=== PATIENT | female | born 1995 | race Caucasian/White ===

== ENCOUNTER 2018-07-10 08:28 | Inpatient (IN) | payer BC ==
--- NOTE | 2018-07-10 09:55 | PDOC ---
History of Present Illness - General Chief Complaint: Pain, Acute Stated Complaint: BACK PAIN Time Seen by Provider: 07/10/18 09:30 - History of Present Illness Initial Comments: 07/10/18 09:48 22yo F with no sig PMH or PSH presents to the ED with sudden onset R sided flank pain radiating to the RLQ since 7am this morning. Pt states pain is sharp , comes in waves, and is associated with nausea and vomiting. Pt reports 3 episodes of NBNB emesis when pain was at its worst. Pt also reports feeling like she needs to void when pain comes on but is only able to void a bit. Reports urine is darker than usual. Pt was in her USOGH prior to onset of pain. No recent fevers, chills, CP, SOB, headache, weakness, numbness, LE edema, rashes. LMP was 3-4 weeks ago. Pt reports she has never had sexual intercourse in the past. Denies vaginal DC. Denies hx kidney stones, but mom states there is a family history. Past History - Past Medical History Allergies/Adverse Reactions: Allergies Allergy/AdvReac Type Severity Reaction Status Date / Time ibuprofen [From Motrin] Allergy Verified 07/10/18 08:42 COPD: No Other medical history: family hx of kidney stones/gall stones - Suicide/Smoking/Psychosocial Hx Smoking History: Never smoked Review of Systems - Review of Systems Comments:: 07/10/18 09:57 GENERAL/CONSTITUTIONAL: No fever or chills. No weakness. HEAD, EYES, EARS, NOSE AND THROAT: No change in vision. No ear pain or discharge. No sore throat. GASTROINTESTINAL: +nausea, vomiting, abd pain, no diarrhea or constipation. GENITOURINARY: +flannk pain and urgency. No dysuria, frequency CARDIOVASCULAR: No chest pain or shortness of breath. RESPIRATORY: No cough, wheezing, or hemoptysis. MUSCULOSKELETAL: No joint or muscle swelling or pain. No neck or back pain. SKIN: No rash NEUROLOGIC: No headache, vertigo, loss of consciousness, or change in strength/ sensation. ENDOCRINE: No increased thirst. No abnormal weight change. HEMATOLOGIC/LYMPHATIC: No anemia, easy bleeding, or history of blood clots. ALLERGIC/IMMUNOLOGIC: No hives or skin allergy. *Physical Exam - Vital Signs Last Vital Signs Temp Pulse Resp BP Pulse Ox 98.1 F 61 18 114/61 99 07/10/18 08:35 07/10/18 08:35 07/10/18 08:35 07/10/18 08:35 07/10/18 08:35 - Physical Exam Comments: 07/10/18 09:58 GENERAL: Awake, alert, and fully oriented, appears uncomfortable EYES: PERRLA, EOMI, sclera anicteric, conjunctiva clear ENT: Nares patent, oropharynx clear without exudates. Moist mucosa LUNGS: Breath sounds equal, clear to auscultation bilaterally. No wheezes, and no crackles HEART: Regular rate and rhythm, normal S1 and S2, no murmurs, rubs or gallops ABDOMEN: Soft, nontender, normoactive bowel sounds. No guarding, no rebound. No masses : +R CVAT, pelvic exam deferred EXTREMITIES: Normal range of motion, no edema. No cords, erythema, or tenderness NEUROLOGICAL: Normal speech, cranial nerves intact, equal strength and sensation b/l SKIN: Warm, Dry, normal turgor, no rashes or lesions noted. Moderate Sedation - Procedure Monitoring Vital Signs: Procedure Monitoring Vital Signs Temperature 98.1 F 07/10/18 08:35 Pulse Rate 61 07/10/18 08:35 Respiratory Rate 18 07/10/18 08:35 Blood Pressure 114/61 07/10/18 08:35 O2 Sat by Pulse Oximetry (%) 99 07/10/18 08:35 ED Treatment Course - LABORATORY CBC & Chemistry Diagram: 07/10/18 09:59 07/10/18 09:59 Medical Decision Making - Medical Decision Making 07/10/18 09:59 22yo F presents to the ED with sudden onset R sided flank pain radiating to RLQ , dark urine, urgency, N/V concerning for R renal colic. Pt is non toxic appearing but uncomfortable. Plan to check labs, UA, UPT, control pain, consider imaging. DDx also includes ovarian torsion vs ovarian cyst vs appendicitis. 07/10/18 13:46 UA with +blood and many WBCs CTAP with gallstones c/f acute ricky, 2.5mm R sided UVJ kidney stone, and R sided ovarian cyst All 3 could be etiology of pt's pain On rpt eval, pt has RUQ ttp RUQ US ordered to evaluate GB Transabdominal US ordered for possible ovarian cyst. Pt currently getting 2nd L IVF to fill bladder. Pt is virgin and declines pelvic exam and transvaginal US Given prolonged w/u, pt put on ED obs. Case discussed with Dr. Boyce, pt accepted to ED obs under Dr. Chapman 07/10/18 17:10 Pelvic US reveals small R sided ovarian cyst with no evidence of torsion RUQ US reveals acute cholecystitis Pt given ZOsyn to cover for cholecystitis as well as possible UTI Case discussed with Dr. Joshi's nurse Poly, Dr. Joshi will see pt Pt is NPO, has been since 7pm last night IVF @maintanence ordered Pt updated about findings, pain well controlled at this time, she declines pain meds Updated Dr. Boyce, care transitioned to admitting hospitalist team Case discussed in detail with admitting physician including history, physical exam and ancillary studies. Admitting physician has assumed care for the patient, will follow all pending diagnostics and will complete the evaluation and treatment. *DC/Admit/Observation/Transfer Diagnosis at time of Disposition: Acute cholecystitis, Ovarian cyst, Kidney stone - Discharge Dispostion Condition at time of disposition: Stable Decision to Admit order: Yes - Referrals - Patient Instructions - Post Discharge Activity - Attestations Physician Attestion: 07/10/18 17:23 I, Dr. Linda Alonso MD, attest that this document has been prepared under my direction and personally reviewed by me in its entirety. I further attest, that it accurately reflects all work, treatment, procedures and medical decision -making performed by me.
[2018-07-10] MEDS ORDERED: ONDANSETRON 4 MG/2 ML VIAL IVPUSH ONE (10:01)
[2018-07-10] MEDS ORDERED: ACETAMINOPHEN 1000 MG/100 ML VIAL (NON FORMULARY) IVPB ONE (10:01)
[2018-07-10 10:20] LABS: BASO % 0.3 % (0-2.0); EOS % 0.4 % (0-4.5); HEMOGLOBIN 11.6 GM/dL (10.7-15.3); LYMPH % 9.1 % (8-40); MCH 30.6 pg (25.7-33.7); MCHC 34.3 g/dl (32.0-36.0); MEAN CELL VOLUME 89.2 fl (80-96); MEAN PLT VOLUME 10.2 fl (7.5-11.1); MONO % 3.2 % (3.8-10.2); PLATELET COUNT 294 K/MM3 (134-434); RBC 3.81 M/mm3 (3.60-5.2); RDW 13.3 % (11.6-15.6); WHITE BLOOD COUNT 12.3 K/mm3 (4.0-10.0)
[2018-07-10] MEDS ORDERED: ACETAMINOPHEN INJECTION 100 ML IVPB ONE (10:25)
[2018-07-10] MEDS ORDERED: ONDANSETRON 4 MG/2 ML VIAL ONE (10:25)
[2018-07-10 10:35] LABS: ALBUMIN 3.8 g/dl (3.4-5.0); ALK PHOS 94 U/L (45-117); ANION GAP 8 MMOL/L (8-16); BILIRUBIN,TOTAL 0.3 mg/dL (0.2-1); BLOOD UREA NITROGEN 11 mg/dL (7-18); CALCIUM 8.8 mg/dL (8.5-10.1); CHLORIDE 106 mmol/L (98-107); CO2 25 mmol/L (21-32); CREATININE 0.8 mg/dL (0.55-1.3); GLUCOSE,RANDOM 124 mg/dL (74-106); LIPASE 150 U/L (73-393); MAGNESIUM 1.8 mg/dL (1.8-2.4); POTASSIUM 4.1 mmol/L (3.5-5.1); SGOT/AST 9 U/L (15-37); SGPT/ALT 19 U/L (13-61); SODIUM 140 mmol/L (136-145); TOT PROT 7.6 g/dl (6.4-8.2)
[2018-07-10 10:38] LABS: HCG,QUALITATIVE URINE Negative
[2018-07-10 11:29] LABS: PH,URINE 5.5 (5.0-8.0); URINE APPEARANCE Clear; URINE BILIRUBIN 1+ (<2.0 mg/dL); URINE COLOR Yellow; URINE GLUCOSE (UA) Negative (NEGATIVE); URINE KETONE Trace (NEGATIVE); URINE LEUK ESTERASE Negative (NEGATIVE); URINE NITRITE Negative (NEGATIVE); URINE PROTEIN 1+ (NEGATIVE); URINE UROBILINOGEN 0.2 mg/dL (0.2-1.0)
[2018-07-10 11:42] LABS: CALCIUM OXALATE CRYSTALS FEW /hpf (NONE SEEN); EPI CELLS FEW /HPF (FEW)
[2018-07-10] MEDS ORDERED: PIPERACILLIN/TAZOB 3.375 GM 3.375 GM in DEXTROSE 5%-WATER - 50 ML IVPB ONE (16:05)
[2018-07-10] MEDS ORDERED: PIPERACILLIN/TAZOB 3.375 GM 3.375 GM/50 ML BAG IVPB ONE (16:38)
[2018-07-10] MEDS ORDERED: MORPHINE SULFATE 2 MG/ML VIAL IVPUSH PRN (17:05)
[2018-07-10] MEDS ORDERED: ONDANSETRON 4 MG/2 ML VIAL IVPUSH PRN (17:09)
--- NOTE | 2018-07-10 17:11 | HP ---
CHIEF COMPLAINT:abdominal pain. PCP: HISTORY OF PRESENT ILLNESS: 22 yo F with no PMHx presents with one day history of worsening abdominal pain. She describes 10/10 sharp pain originating in right flank and radiating to suprapubic area. Aggravated by movement and no alleviating factors. Denies dysuria or hematuria. Denies CP,FLORES, SOB, ER course was notable for: (1)CT abdomen and pelvis shows small 2.5mm non obstructing stone. (2)RUQ shows acute cholecystitis. (3) Recent Travel: denies PAST MEDICAL HISTORY: PAST SURGICAL HISTORY: Social History: Smoking:denies Alcohol:socially Drugs: occasional marijuana Family History: Allergies ibuprofen [From Motrin] Allergy (Verified 07/10/18 08:42) HOME MEDICATIONS: REVIEW OF SYSTEMS CONSTITUTIONAL: Absent: fever, chills, diaphoresis, generalized weakness, malaise, loss of appetite, weight change HEENT: Absent: rhinorrhea, nasal congestion, throat pain, throat swelling, difficulty swallowing, mouth swelling, ear pain, eye pain, visual changes CARDIOVASCULAR: Absent: chest pain, syncope, palpitations, irregular heart rate, lightheadedness , peripheral edema RESPIRATORY: Absent: cough, shortness of breath, dyspnea with exertion, orthopnea, wheezing, stridor, hemoptysis GASTROINTESTINAL:abdominal pain Absent: , abdominal distension, nausea, vomiting, diarrhea, constipation, melena , hematochezia GENITOURINARY: Absent: dysuria, frequency, urgency, hesitancy, hematuria, flank pain, genital pain MUSCULOSKELETAL: Absent: myalgia, arthralgia, joint swelling, back pain, neck pain SKIN: Absent: rash, itching, pallor HEMATOLOGIC/IMMUNOLOGIC: Absent: easy bleeding, easy bruising, lymphadenopathy, frequent infections ENDOCRINE: Absent: unexplained weight gain, unexplained weight loss, heat intolerance, cold intolerance NEUROLOGIC: Absent: headache, focal weakness or paresthesias, dizziness, unsteady gait, seizure, mental status changes, bladder or bowel incontinence PSYCHIATRIC: Absent: anxiety, depression, suicidal or homicidal ideation, hallucinations. PHYSICAL EXAMINATION Vital Signs - 24 hr 07/10/18 08:35 Temperature 98.1 F Pulse Rate 61 Respiratory 18 Rate Blood Pressure 114/61 O2 Sat by Pulse 99 Oximetry (%) GENERAL: AAOx3, NAD HEAD: NCAT EYES: PERRLA, EOMI, extraocular movements intact, sclera anicteric, conjunctiva clear. No lid lag. EARS, NOSE, THROAT: Moist mucous membranes. NECK: supple without lymphadenopathy, JVD, or masses. LUNGS: CTAB No wheezes, and no crackles. No accessory muscle use. HEART: Regular rate and rhythm, normal S1 and S2 without murmur, rub or gallop. ABDOMEN: Soft, RUQ tenderness, not distended, normoactive bowel sounds, no guarding, no rebound, no masses. No hepatomegaly or splenomegaly. MUSCULOSKELETAL: Normal range of motion at all joints. No bony deformities or tenderness. No CVA tenderness. LOWER EXTREMITIES: 2+ pulses, warm, well-perfused. No calf tenderness. No peripheral edema. NEUROLOGICAL: Cranial nerves II-XII intact. Normal speech. Normal gait. PSYCHIATRIC: Cooperative. Good eye contact. Appropriate mood and affect. SKIN: Warm, dry, normal turgor, no rashes or lesions noted, normal capillary refill. Laboratory Results - last 24 hr 07/10/18 07/10/18 07/10/18 08:57 09:59 09:59 WBC 12.3 H RBC 3.81 Hgb 11.6 Hct 34.0 MCV 89.2 MCH 30.6 MCHC 34.3 RDW 13.3 Plt Count 294 MPV 10.2 Absolute Neuts (auto) 10.7 H Neutrophils % 87.0 H Lymphocytes % 9.1 Monocytes % 3.2 L Eosinophils % 0.4 Basophils % 0.3 Nucleated RBC % 0 Sodium Potassium Chloride Carbon Dioxide Anion Gap BUN Creatinine Creat Clearance w eGFR Random Glucose Calcium Magnesium Total Bilirubin AST ALT Alkaline Phosphatase Total Protein Albumin Lipase Urine Color Yellow Urine Appearance Clear Urine pH 5.5 Ur Specific [place] >= 1.030 Urine Protein 1+ H Urine Glucose (UA) Negative Urine Ketones Trace Urine Blood 3+ H Urine Nitrite Negative Urine Bilirubin 1+ H Urine Urobilinogen 0.2 Ur Leukocyte Esterase Negative Urine WBC (Auto) 305 Urine RBC (Auto) 5-10 Ur Epithelial Cells Few Calcium Oxalate Crystal Few Urine HCG, Qual Negative Blood Type A POSITIVE Antibody Screen Negative 07/10/18 09:59 WBC RBC Hgb Hct MCV MCH MCHC RDW Plt Count MPV Absolute Neuts (auto) Neutrophils % Lymphocytes % Monocytes % Eosinophils % Basophils % Nucleated RBC % Sodium 140 Potassium 4.1 Chloride 106 Carbon Dioxide 25 Anion Gap 8 BUN 11 Creatinine 0.8 Creat Clearance w eGFR 91.45 Random Glucose 124 H Calcium 8.8 Magnesium 1.8 Total Bilirubin 0.3 AST 9 L ALT 19 Alkaline Phosphatase 94 Total Protein 7.6 Albumin 3.8 Lipase 150 Urine Color Urine Appearance Urine pH Ur Specific [place] Urine Protein Urine Glucose (UA) Urine Ketones Urine Blood Urine Nitrite Urine Bilirubin Urine Urobilinogen Ur Leukocyte Esterase Urine WBC (Auto) Urine RBC (Auto) Ur Epithelial Cells Calcium Oxalate Crystal Urine HCG, Qual Blood Type Antibody Screen ASSESSMENT/PLAN: 22 yo F with no PMHx presents with one day history of worsening abdominal pain admitted to med/surg for acute cholecystitis. Problem List - Problem (1) Acute cholecystitis Assessment/Plan: * NPO * Surgery consult * IVF * pain management Morphine 2mg IV Q4H (2) Kidney stone Assessment/Plan: small stone that should pass on its own . * Continue IV hydration. (3) Ovarian cyst Assessment/Plan: Seen on Transabdominal US. * simple cyst * no further management or work up necessary. (4) DVT prophylaxis Assessment/Plan: Lovenox SQ 40mg Visit type - Emergency Visit Emergency Visit: Yes ED Registration Date: 07/10/18 Care time: The patient presented to the Emergency Department on the above date and was hospitalized for further evaluation of their emergent condition. - New Patient This patient is new to me today: Yes Date on this admission: 07/11/18 - Critical Care Critical Care patient: No
--- NOTE | 2018-07-10 17:24 | PN ---
Teaching Attending Note Name of Resident: Ivan Boyce ATTENDING PHYSICIAN STATEMENT I saw and evaluated the patient. I reviewed the resident's note and discussed the case with the resident. I agree with the resident's findings and plan as documented. SUBJECTIVE: Patient is a 22yo F with no sig. PMHx presents to the ED with sudden onset R sided flank pain radiating to the RLQ since 7am this morning. No fever or chills. OBJECTIVE: Vital Signs Temperature 98.1 F 07/10/18 08:35 Pulse Rate 61 07/10/18 08:35 Respiratory Rate 18 07/10/18 08:35 Blood Pressure 114/61 07/10/18 08:35 O2 Sat by Pulse Oximetry (%) 99 07/10/18 08:35 Initial Vital Signs Temp Pulse Resp BP Pulse Ox 98.1 F 61 18 114/61 99 07/10/18 08:35 07/10/18 08:35 07/10/18 08:35 07/10/18 08:35 07/10/18 08:35 GENERAL: Awake, alert, and fully oriented, in no acute distress. HEAD: Normal with no signs of trauma. EYES: Pupils equal, round and reactive to light, extraocular movements intact, sclera anicteric, conjunctiva clear. EARS, NOSE, THROAT: Ears normal, oropharynx clear without exudates. Moist mucous membranes. NECK: Normal range of motion, supple without lymphadenopathy, JVD, or masses. LUNGS: Breath sounds equal, clear to auscultation bilaterally. No wheezes, and no crackles. No accessory muscle use. HEART: Regular rate and rhythm, normal S1 and S2 without murmur, rub or gallop. ABDOMEN: RUQ pain, with diffuse tenderness. not distended, positive BS, voluntary guarding, no rebound, no masses appreciated. EXTREMITIES: 2+ pulses, warm, well-perfused. No cyanosis. No clubbing. No peripheral edema. NEUROLOGICAL: Cranial nerves II-XII intact. Normal speech. Normal gait. PSYCHIATRIC: Cooperative. Good eye contact. Appropriate mood and affect. SKIN: Warm, dry, normal turgor, no rashes or lesions noted, normal capillary refill. CBCD WBC 12.3 K/mm3 (4.0-10.0) H 07/10/18 09:59 RBC 3.81 M/mm3 (3.60-5.2) 07/10/18 09:59 Hgb 11.6 GM/dL (10.7-15.3) 07/10/18 09:59 Hct 34.0 % (32.4-45.2) 07/10/18 09:59 MCV 89.2 fl (80-96) 07/10/18 09:59 MCHC 34.3 g/dl (32.0-36.0) 07/10/18 09:59 RDW 13.3 % (11.6-15.6) 07/10/18 09:59 Plt Count 294 K/MM3 (134-434) 07/10/18 09:59 MPV 10.2 fl (7.5-11.1) 07/10/18 09:59 CMP Sodium 140 mmol/L (136-145) 07/10/18 09:59 Potassium 4.1 mmol/L (3.5-5.1) 07/10/18 09:59 Chloride 106 mmol/L (98-107) 07/10/18 09:59 Carbon Dioxide 25 mmol/L (21-32) 07/10/18 09:59 Anion Gap 8 MMOL/L (8-16) 07/10/18 09:59 BUN 11 mg/dL (7-18) 07/10/18 09:59 Creatinine 0.8 mg/dL (0.55-1.3) 07/10/18 09:59 Creat Clearance w eGFR 91.45 (>60) 07/10/18 09:59 Random Glucose 124 mg/dL (74-106) H 07/10/18 09:59 Calcium 8.8 mg/dL (8.5-10.1) 07/10/18 09:59 Total Bilirubin 0.3 mg/dL (0.2-1) 07/10/18 09:59 AST 9 U/L (15-37) L 07/10/18 09:59 ALT 19 U/L (13-61) 07/10/18 09:59 Alkaline Phosphatase 94 U/L (45-117) 07/10/18 09:59 Total Protein 7.6 g/dl (6.4-8.2) 07/10/18 09:59 Albumin 3.8 g/dl (3.4-5.0) 07/10/18 09:59 Current Medications Generic Name Dose Route Start Last Admin Trade Name Freq PRN Reason Stop Dose Admin Enoxaparin Sodium 40 mg 07/11/18 10:00 Lovenox - SQ DAILY [facility] Dextrose/Sodium Chloride 1,000 mls @ 100 mls/hr 07/10/18 17:15 D5-1/2ns - IV ASDIR KENNEDY Lactated Ringer's 1,000 ml in 1,000 mls @ 125 mls/hr 07/10/18 17:30 Lactated Ringers Solution IV ASDIR [facility] Morphine Sulfate 2 mg 07/10/18 17:05 Morphine Sulfate IVPUSH Q4H PRN PAIN LEVEL 6-10 Ondansetron HCl 4 mg 07/10/18 17:09 Zofran Injection IVPUSH Q6H PRN NAUSEA US/ABDOMEN US -LIMITED HISTORY PROVIDED: Right upper quadrant pain. Real time examination of the abdomen demonstrates the following: The gallbladder is largely contracted. It appears to contain small calculi although a follow-up study following adequate patient preparation is now recommended. There is no evidence of intra or extrahepatic biliary duct dilatation. The liver is normal in size and texture with no intrahepatic masses seen. Hepatopedal flow is documented within the main portal vein. The pancreas is normal in size and texture with no pancreatic masses identified. There is no evidence of hydronephrosis or acute abnormalities of the right kidney. There is no evidence of AAA. The IVC is patent. IMPRESSION: Contracted gallbladder with suspected cholelithiasis. Clinical correlation and follow-up recommended. Please see above discussion. Reported By: Sky Hobbs MD 07/10/18 9205 US of abdomen : The gallbladder is largely contracted. It appears to contain small calculi although a follow-up study following adequate patient preparation is now recommended. There is no evidence of intra or extrahepatic biliary duct dilatation. The liver is normal in size and texture with no intrahepatic masses seen. Hepatopedal flow is documented within the main portal vein. The pancreas is normal in size and texture with no pancreatic masses identified. There is no evidence of hydronephrosis or acute abnormalities of the right kidney. There is no evidence of AAA. The IVC is patent. IMPRESSION: Contracted gallbladder with suspected cholelithiasis. Clinical correlation and follow-up recommended. Please see above discussion. CT of abdomen: Small gallstones with suggestion of acute cholecystitis for which further evaluation with gallbladder ultrasound is recommended. Tiny calcific density in the region of the right ureterovesical junction that may represent a nonobstructing stone measuring 2.5 mm and without gross evidence of right renal hydroureteronephrosis. Follow-up CT scan or a CT urogram is needed for further evaluation. Right ovarian cyst measuring 3.1 cm for which correlation with pelvis ultrasound is needed. There is a trace of free fluid in the cul-de-sac, likely physiologic Reported By: Naty Gibbs MD 07/10/18 4917 ASSESSMENT AND PLAN: Patient is a 22yo F with no PMHx presents to the ED with sudden onset R sided flank pain radiating to the RLQ since 7am this morning, was found to have acute cholecystitis. # Acute cholecystitis with contracted gallbladder ,due to gallstones on IV antibiotic zosyn continue ; sx and id on the case. # Right Ovarian cyst on the ct around 3.1 cm; will get pelvic us # Right ureterovesical junction stone 2.5mm , non-obstructing with no evidence of hydronephrosis. DVT prophylaxis: lovenox
[2018-07-10] MEDS ORDERED: LACTATED RINGERS SOLUTION 1,000 ML/1,000 ML INFUS.BAG IV SCH (17:30)
[2018-07-10] MEDS: DEXTROSE 5%-0.45% SALINE 1,000 ML IV SCH (17:37)
[2018-07-10 21:58] VITALS: BMI 34.2
[2018-07-11] MEDS: DEXTROSE 5%-0.45% SALINE 1,000 ML IV SCH (06:18)
[2018-07-11 06:48] LABS: BASO % 0.3 % (0-2.0); EOS % 1.1 % (0-4.5); HEMATOCRIT 28.5 % (32.4-45.2); HEMOGLOBIN 9.7 GM/dL (10.7-15.3); LYMPH % 32.5 % (8-40); MCH 30.4 pg (25.7-33.7); MEAN CELL VOLUME 89.6 fl (80-96); MEAN PLT VOLUME 10.4 fl (7.5-11.1); MONO % 5.3 % (3.8-10.2); NEUT % 60.8 % (42.8-82.8); PLATELET COUNT 249 K/MM3 (134-434); RBC 3.18 M/mm3 (3.60-5.2); RDW 13.6 % (11.6-15.6); WHITE BLOOD COUNT 8.2 K/mm3 (4.0-10.0)
[2018-07-11 07:01] LABS: INR 1.23 (0.83-1.09); PROTHROMBIN TIME (PATIENT) 14.5 SEC (9.7-13.0)
[2018-07-11 07:04] LABS: ACTIVATED PTT 29.5 SECONDS (25.2-36.5)
[2018-07-11 07:23] LABS: ALK PHOS 76 U/L (45-117); ANION GAP 6 MMOL/L (8-16); BILIRUBIN,TOTAL 0.4 mg/dL (0.2-1); BLOOD UREA NITROGEN 8 mg/dL (7-18); CALCIUM 7.9 mg/dL (8.5-10.1); CHLORIDE 106 mmol/L (98-107); CO2 26 mmol/L (21-32); CREATININE 0.7 mg/dL (0.55-1.3); GLUCOSE,RANDOM 97 mg/dL (74-106); MAGNESIUM 1.8 mg/dL (1.8-2.4); PHOSPHOROUS 4.5 mg/dL (2.5-4.9); POTASSIUM 3.7 mmol/L (3.5-5.1); SGOT/AST 8 U/L (15-37); SGPT/ALT 15 U/L (13-61); SODIUM 139 mmol/L (136-145); TOT PROT 6.1 g/dl (6.4-8.2)
[2018-07-11] MEDS ORDERED: ENOXAPARIN NA (PORCINE) 40 MG/0.4 ML DISP.SYRIN SQ SCH (10:00)
[2018-07-11] MEDS ORDERED: MORPHINE SULFATE 2 MG/ML VIAL IVPUSH PRN (13:15)
--- NOTE | 2018-07-11 13:37 | PN ---
Progress Note (short form) - Note Progress Note: Patient is feeling better , would like different pain medication since making her sleepy. Vital Signs Temperature 97.5 F L 07/11/18 05:00 Pulse Rate 61 07/11/18 05:00 Respiratory Rate 19 07/11/18 05:00 Blood Pressure 106/49 L 07/11/18 05:00 O2 Sat by Pulse Oximetry (%) 98 07/10/18 21:45 GENERAL: Awake, alert, and fully oriented, in no acute distress. HEAD: Normal with no signs of trauma. EYES: Pupils equal, round and reactive to light, extraocular movements intact, sclera anicteric, conjunctiva clear. EARS, NOSE, THROAT: Ears normal, oropharynx clear without exudates. Moist mucous membranes. NECK: Normal range of motion, supple without lymphadenopathy, JVD, or masses. LUNGS: Breath sounds equal, clear to auscultation bilaterally. No wheezes, and no crackles. No accessory muscle use. HEART: Regular rate and rhythm, normal S1 and S2 without murmur, rub or gallop. ABDOMEN: RUQ pain, with diffuse tenderness improving . not distended, positive BS, voluntary guarding, no rebound, no masses appreciated. EXTREMITIES: 2+ pulses, warm, well-perfused. No cyanosis. No clubbing. No peripheral edema. NEUROLOGICAL: Cranial nerves II-XII intact. Normal speech. Normal gait. PSYCHIATRIC: Cooperative. Good eye contact. Appropriate mood and affect. SKIN: Warm, dry, normal turgor, no rashes or lesions noted, normal capillary refill. CBCD WBC 8.2 K/mm3 (4.0-10.0) 07/11/18 05:20 RBC 3.18 M/mm3 (3.60-5.2) L 07/11/18 05:20 Hgb 9.7 GM/dL (10.7-15.3) L 07/11/18 05:20 Hct 28.5 % (32.4-45.2) L D 07/11/18 05:20 MCV 89.6 fl (80-96) 07/11/18 05:20 MCHC 34.0 g/dl (32.0-36.0) 07/11/18 05:20 RDW 13.6 % (11.6-15.6) 07/11/18 05:20 Plt Count 249 K/MM3 (134-434) 07/11/18 05:20 MPV 10.4 fl (7.5-11.1) 07/11/18 05:20 CMP Sodium 139 mmol/L (136-145) 07/11/18 05:20 Potassium 3.7 mmol/L (3.5-5.1) 07/11/18 05:20 Chloride 106 mmol/L (98-107) 07/11/18 05:20 Carbon Dioxide 26 mmol/L (21-32) 07/11/18 05:20 Anion Gap 6 MMOL/L (8-16) L 07/11/18 05:20 BUN 8 mg/dL (7-18) 07/11/18 05:20 Creatinine 0.7 mg/dL (0.55-1.3) 07/11/18 05:20 Creat Clearance w eGFR 106.68 (>60) 07/11/18 05:20 Random Glucose 97 mg/dL (74-106) 07/11/18 05:20 Calcium 7.9 mg/dL (8.5-10.1) L 07/11/18 05:20 Total Bilirubin 0.4 mg/dL (0.2-1) 07/11/18 05:20 AST 8 U/L (15-37) L 07/11/18 05:20 ALT 15 U/L (13-61) 07/11/18 05:20 Alkaline Phosphatase 76 U/L (45-117) 07/11/18 05:20 Total Protein 6.1 g/dl (6.4-8.2) L 07/11/18 05:20 Albumin 3.0 g/dl (3.4-5.0) L 07/11/18 05:20 Current Medications Generic Name Dose Route Start Last Admin Trade Name Freq PRN Reason Stop Dose Admin Acetaminophen 1,000 mg 07/11/18 13:15 Ofirmev Injection - IVPB Q6H PRN pain 1-3 Enoxaparin Sodium 40 mg 07/11/18 10:00 Lovenox - SQ DAILY KENNEDY Ceftriaxone Sodium 2 gm in 50 mls @ 100 mls/hr 07/11/18 13:45 Ceftriaxone 2 Gm-D5w Bag IVPB DAILY [facility] Protocol Metronidazole 500 mg in 100 mls @ 100 mls/hr 07/11/18 18:00 Flagyl 500mg Premixed Ivpb - IVPB Q8H-IV KENNEDY Morphine Sulfate 1 mg 07/11/18 13:15 Morphine Sulfate IVPUSH Q4H PRN PAIN LEVEL 6-10 Ondansetron HCl 4 mg 07/10/18 17:09 07/11/18 04:21 Zofran Injection IVPUSH 4 mg Q6H PRN Administration NAUSEA Home Medications Medication Instructions Recorded NK [No Known Home Medication] 07/10/18 US/ABDOMEN US -LIMITED HISTORY PROVIDED: Right upper quadrant pain. Real time examination of the abdomen demonstrates the following: The gallbladder is largely contracted. It appears to contain small calculi although a follow-up study following adequate patient preparation is now recommended. There is no evidence of intra or extrahepatic biliary duct dilatation. The liver is normal in size and texture with no intrahepatic masses seen. Hepatopedal flow is documented within the main portal vein. The pancreas is normal in size and texture with no pancreatic masses identified. There is no evidence of hydronephrosis or acute abnormalities of the right kidney. There is no evidence of AAA. The IVC is patent. IMPRESSION: Contracted gallbladder with suspected cholelithiasis. Clinical correlation and follow-up recommended. Please see above discussion. Reported By: Sky Hobbs MD 07/10/18 5945 US of abdomen : The gallbladder is largely contracted. It appears to contain small calculi although a follow-up study following adequate patient preparation is now recommended. There is no evidence of intra or extrahepatic biliary duct dilatation. The liver is normal in size and texture with no intrahepatic masses seen. Hepatopedal flow is documented within the main portal vein. The pancreas is normal in size and texture with no pancreatic masses identified. There is no evidence of hydronephrosis or acute abnormalities of the right kidney. There is no evidence of AAA. The IVC is patent. IMPRESSION: Contracted gallbladder with suspected cholelithiasis. CT of abdomen: Small gallstones with suggestion of acute cholecystitis for which further evaluation with gallbladder ultrasound is recommended. Tiny calcific density in the region of the right ureterovesical junction that may represent a nonobstructing stone measuring 2.5 mm and without gross evidence of right renal hydroureteronephrosis. Follow-up CT scan or a CT urogram is needed for further evaluation. Right ovarian cyst measuring 3.1 cm for which correlation with pelvis ultrasound is needed. There is a trace of free fluid in the cul-de-sac, likely physiologic Reported By: Naty Gibbs MD 07/10/18 1241 ASSESSMENT AND PLAN: Patient is a 22yo F with no PMHx presents to the ED with sudden onset R sided flank pain radiating to the RLQ and was found to have acute cholecystitis. # Acute cholecystitis with contracted gallbladder ,due to gallstones on IV antibiotic zosyn switched to IV Rocphin and Flagyl as per ID ; sx Dr. Raven clement is consulted and discussed with , id appreciated . # Right Ovarian cyst on the ct around 3.1 cm; and pelvic us ordered # Right ureterovesical junction stone 2.5mm , non-obstructing with no evidence of hydronephrosis. will get bladder Us to evaluate the bladder stone,As clinically she must have passed the stone, she has no cva tenderness. DVT prophylaxis: lovenox Visit type - Emergency Visit Emergency Visit: Yes ED Registration Date: 07/10/18 Care time: The patient presented to the Emergency Department on the above date and was hospitalized for further evaluation of their emergent condition. - New Patient This patient is new to me today: No - Critical Care Critical Care patient: No - Discharge Referral Referred to [facility] Med P.C.: No
--- NOTE | 2018-07-11 13:44 | PN ---
Progress Note (short form) - Note Progress Note: ID consult dictated imp/reccd 22 yo female was awoken from her sleep yesterday with severe stabbing right sided back pain that moved to her abdomen +multiple episodes of vomiting sweat and shakes came to ED evaluation included ct scan and sonogram found to have acute cholyscystitis with small stones in GB, right uv jxn stone ( hematuria) and right ovarian cyst wbc 12 given zosyn in ED continues to hve RUQ pain no history of UTS no outpt antibioitcs acute cholycstitis nephrolithaisis right ovarian cyst rocephin/flagyl surgical evaluation pending IVF d/w hospitalist
[2018-07-11] MEDS ORDERED: CEFTRIAXONE 2 GM in DEXTROSE 5%-WATER 100 ML IVPB SCH (13:45)
[2018-07-11] MEDS ORDERED: DEXTROSE 5%-WATER 100 ML IVPB ONE (15:09)
[2018-07-11] MEDS: ACETAMINOPHEN 1000 MG/100 ML VIAL (NON FORMULARY) IVPB PRN ×2 (15:54→23:06)
--- NOTE | 2018-07-11 16:44 | PN ---
Progress Note (short form) - Note Progress Note: surgery pt seen and examined. full consult dictated. 22f presents with now resolved ruq and flank pain for [address] shows gallstones with mild gb inflammation and possible kidney stone at right ureter/bladder junction. u/s shows non inflamed contracted gb with stones. ua positive for blood. uc negative. pt is not having her mentstral cycle. currently pain free abd- soft, mild ruq and flank tenderness Plan- suspect acute gu event. blood in urine cant be explained otherwise. doubt secondary biliary event. would stop abx. low fat diet. No general surgical contra-indication to discharge if tolerates. can follow as outpt to consider elective cholecystectomy if pt notes fatty food intolerance in the future. If pt unable to tolerate diet will need HIDA. Unless unable to tolerate diet and positive HIDA would not operate this admission. Hematuria and likley nephrolithiasis per medical team.
--- NOTE | 2018-07-11 17:14 | CONS ---
DATE OF CONSULTATION: 07/11/2018 REASON FOR CONSULTATION: Acute cholecystitis, cholelithiasis. This is an inpatient consultation at the request of the hospitalist service. BRIEF HISTORY: This is a 22-year-old female who yesterday developed 4 hours of right upper quadrant and right flank abdominal pain with nausea and vomiting. She presented to the [facility] Emergency Room. There she had a CAT scan done of her abdomen and pelvis which showed a likely kidney stone located at the junction of the right ureter and the pelvis. She also was noted to have gallstones within her gallbladder, with possible inflammatory changes. The gallbladder was not distended. She also had an ultrasound done of her gallbladder which showed gallstones, a contracted gallbladder without inflammatory changes. Her pain resolved after 4 hours. She was noted to have blood in her urine. She had a negative urine culture, and she notes that she has not had her menstrual cycle in 4 weeks. She is currently pain-free and hungry. PAST MEDICAL HISTORY: Negative. PAST SURGICAL HISTORY: Includes a tonsillectomy as a child without complication. SOCIAL HISTORY: Negative for alcohol, negative for tobacco. FAMILY HISTORY: Negative for malignancy in the immediate family. REVIEW OF SYSTEMS: General: Denies fatigue or malaise. Cardiac: Denies chest pain or palpitations. Respiratory: Denies shortness of breath or wheeze. Gastrointestinal: As in HPI. Currently no nausea, no vomiting, no abdominal pain, no diarrhea, no blood in the stool, no weight loss. Genitourinary: Currently no symptoms. Musculoskeletal: Denies joint pain. Psychiatric: Denies anxiety, depression, or hearing voices. PHYSICAL EXAMINATION: General: This is an obese 22-year-old female in no distress. Vital Signs: She is afebrile, has been since admission. HEENT: Her head is normocephalic. Her sclerae are anicteric. Neck: Supple. Chest: Clear. Abdomen: Soft. She has minimal epigastric, right upper quadrant tenderness, and right flank tenderness. She has no surgical scars. She has no obvious masses. Extremities: No edema. LABORATORY: Her white blood cell count today is normal at 8.2. It was 12.3 on admission. She currently has 60% neutrophils. She had 87% on admission. Her chemistries are unremarkable, with normal liver function tests, normal lipase. Review of her urinalysis: She has 3+ blood. She has 5-10 red blood cells, and it does not appear to be a contaminated specimen. IMAGING: As stated in the HPI. In addition, she had a bladder ultrasound done which was unremarkable. ASSESSMENT: This is a 22-year-old female who had 4 hours of right-sided abdominal pain and flank pain on Jax. This corresponded with blood in her urine. A CAT scan consistent with a kidney stone in her right ureter. At the same time she had gallstones seen on CAT scan and ultrasound. Based on the fact that the gallbladder is contracted, this goes against the gallbladder being obstructed, and thus unlikely to be a source of pain at the time of the study. Blood in her urine cannot be explained by gallstones. At this point is strongly suspect she had an acute urinary event, most likely based on passing a kidney stone. She does indeed have gallstones, but it is unlikely that she had 2 events at the same time. She does not report a history of fatty food intolerance or any issues prior to this event. At this point she does not have acute cholecystitis, manifest by the fact that her symptoms are gone. Recommend stop the antibiotics and placing her on a low fat diet. If she tolerates diet, there are no general surgery contraindications to discharge. If she notices symptoms in the future or wishes further discussion about elective cholecystectomy, she can follow with me as an outpatient. As far as the blood in her urine and the likely kidney stones, this is to be managed by the medical team. If the patient is unable to tolerate diet, at that point I would get a HIDA scan and only if positive would I recommend proceeding with cholecystectomy this admission. Again, I suspect she does not have a biliary event and therefore surgery would be unwarranted. DO PER [id number]
--- NOTE | 2018-07-12 12:09 | PN ---
Physical Exam: SUBJECTIVE: Patient seen and examined OBJECTIVE: Vital Signs Period Temp Pulse Resp BP Sys/Virgen Pulse Ox Last 24 Hr 97.3 F-98.5 F 49-63 16-18 82-113/46-59 97-99 GENERAL: The patient is awake, alert, and fully oriented, in no acute distress. HEAD: Normal with no signs of trauma. EYES: PERRL, extraocular movements intact, sclera anicteric, conjunctiva clear. No ptosis. ENT: Ears normal, nares patent, oropharynx clear without exudates, moist mucous membranes. NECK: Trachea midline, full range of motion, supple. LUNGS: Breath sounds equal, clear to auscultation bilaterally, no wheezes, no crackles, no accessory muscle use. HEART: Regular rate and rhythm, S1, S2 without murmur, rub or gallop. ABDOMEN: Soft, nontender, nondistended, normoactive bowel sounds, no guarding, no rebound, no hepatosplenomegaly, no masses. EXTREMITIES: 2+ pulses, warm, well-perfused, no edema. NEUROLOGICAL: Cranial nerves II through XII grossly intact. Normal speech, gait not observed. PSYCH: Normal mood, normal affect. SKIN: Warm, dry, normal turgor, no rashes or lesions noted Active Medications Generic Name Dose Route Start Last Admin Trade Name Freq PRN Reason Stop Dose Admin Acetaminophen 1,000 mg 07/11/18 13:15 07/11/18 23:06 Ofirmev Injection - IVPB 1,000 mg Q6H PRN Administration pain 1-3 Enoxaparin Sodium 40 mg 07/11/18 10:00 Lovenox - SQ DAILY KENNEDY Morphine Sulfate 1 mg 07/11/18 13:15 Morphine Sulfate IVPUSH Q4H PRN PAIN LEVEL 6-10 Ondansetron HCl 4 mg 07/10/18 17:09 07/11/18 04:21 Zofran Injection IVPUSH 4 mg Q6H PRN Administration NAUSEA ASSESSMENT/PLAN: 22 y.o female with no PMH presents with a one day history of worsening abdominal pain found to acute cholecystitis in addition to a 2.5mm right ureteral-junction stone #
[2018-07-12 12:22] LABS: HEMATOCRIT 31.3 % (32.4-45.2); MCH 31.1 pg (25.7-33.7); MCHC 35.2 g/dl (32.0-36.0); MEAN CELL VOLUME 88.4 fl (80-96); MEAN PLT VOLUME 10.4 fl (7.5-11.1); PLATELET COUNT 253 K/MM3 (134-434); RBC 3.54 M/mm3 (3.60-5.2); RDW 13.2 % (11.6-15.6)
[2018-07-12 12:29] LABS: ALBUMIN 3.4 g/dl (3.4-5.0); ALK PHOS 87 U/L (45-117); ANION GAP 6 MMOL/L (8-16); BILIRUBIN,TOTAL 0.3 mg/dL (0.2-1); BLOOD UREA NITROGEN 5 mg/dL (7-18); CALCIUM 8.7 mg/dL (8.5-10.1); CHLORIDE 107 mmol/L (98-107); CO2 27 mmol/L (21-32); CREATININE 0.6 mg/dL (0.55-1.3); GLUCOSE,RANDOM 96 mg/dL (74-106); SGOT/AST 21 U/L (15-37); SGPT/ALT 34 U/L (13-61); SODIUM 140 mmol/L (136-145)
--- NOTE | 2018-07-12 13:19 | CONS ---
INFECTIOUS DISEASE CONSULTATION DATE OF CONSULTATION: DATE OF DICTATION: 07/12/2018 HISTORY OF PRESENT ILLNESS: A 22-year-old woman, who night she had a at 7 a.m. and she was awoken from her sleep by stabbing pain in her right back that ultimately radiated to her right upper abdomen. She vomited about 6 or 7 times at home. She presented to the ER with the complaint. She notes she has had some sweats and shakes but no fever. Her evaluation in the emergency room included a CAT scan and ultrasound. CAT scan was notable for possibility of acute cholecystitis with small stones. There was also right UV junction stone and a right ovarian cyst. There is no history of any fevers. She is not sexually active. ALLERGIES: She is allergic to MOTRIN which gives her hives. SURGERY: She was hospitalized once at age 3 for a tonsillectomy and adenoidectomy. SOCIAL HISTORY: There is no history of cigarette or substance abuse. She is a college student. REVIEW OF SYSTEMS: She was not unwell prior to this; this is all very acute in onset. There is no history of UTI. She has not recently had any antibiotics. PHYSICAL EXAM: Vital Signs: She is afebrile. Temperature is 97.6. Pulse is 64. Blood pressure 102/61. Respiratory rate is 18. She is saturating 99%. HEENT: She is normocephalic. Her eyes are anicteric. Neck: Supple. Lungs: Clear to auscultation. Heart: Regular rate and rhythm. Abdomen: Soft and nondistended. She has mild right upper quadrant discomfort to examination. She has no CVA tenderness. No suprapubic pain. LABORATORY DATA: On admission white count 12.3, this morning is 8.2. Hemoglobin 9.7. Platelets are 29. Chemistries are 8 and 0.7. Liver function tests are normal. Urinalysis has 307 white cells with 3+ blood. test is negative. IN SUMMARY: This is a 22-year-old woman who appears to have possible acute cholecystitis. No cholelithiasis. A right ovarian cyst. She got a dosage of Zosyn in the ER while awaiting surgical evaluation. Will continue her on Rocephin and Flagyl with IV fluids. Further recommendations to follow. MARGAUXDago [id number]
[2018-07-12 14:56] VITALS: BP 113/57; PULSE 69; TEMP 98.6
--- NOTE | 2018-07-12 15:58 | PN ---
Teaching Attending Note Name of Resident: Eladia Alston ATTENDING PHYSICIAN STATEMENT I saw and evaluated the patient. I reviewed the resident's note and discussed the case with the resident. I agree with the resident's findings and plan as documented. SUBJECTIVE: Patient is feeling well, tolerating diet, no nausea or vomiting. OBJECTIVE: Vital Signs Temperature 98.6 F 07/12/18 14:49 Pulse Rate 69 07/12/18 14:49 Respiratory Rate 20 07/12/18 14:49 Blood Pressure 113/57 L 07/12/18 14:49 O2 Sat by Pulse Oximetry (%) 97 07/11/18 21:00 GENERAL: Awake, alert, and fully oriented, in no acute distress. HEAD: Normal with no signs of trauma. EYES: Pupils equal, round and reactive to light, extraocular movements intact, sclera anicteric, conjunctiva clear. EARS, NOSE, THROAT: Ears normal, oropharynx clear without exudates. Moist mucous membranes. NECK: Normal range of motion, supple without lymphadenopathy, JVD, or masses. LUNGS: Breath sounds equal, clear to auscultation bilaterally. No wheezes, and no crackles. No accessory muscle use. HEART: Regular rate and rhythm, normal S1 and S2 without murmur, rub or gallop. ABDOMEN: No further abdominal pain . not distended, positive BS, voluntary guarding, no rebound, no masses appreciated. EXTREMITIES: 2+ pulses, warm, well-perfused. No cyanosis. No clubbing. No peripheral edema. NEUROLOGICAL: Cranial nerves II-XII intact. Normal speech. Normal gait. PSYCHIATRIC: Cooperative. Good eye contact. Appropriate mood and affect. SKIN: Warm, dry, normal turgor, no rashes or lesions noted, normal capillary refill. CBCD WBC 7.0 K/mm3 (4.0-10.0) 07/12/18 12:00 RBC 3.54 M/mm3 (3.60-5.2) L 07/12/18 12:00 Hgb 11.0 GM/dL (10.7-15.3) 07/12/18 12:00 Hct 31.3 % (32.4-45.2) L 07/12/18 12:00 MCV 88.4 fl (80-96) 07/12/18 12:00 MCHC 35.2 g/dl (32.0-36.0) 07/12/18 12:00 RDW 13.2 % (11.6-15.6) 07/12/18 12:00 Plt Count 253 K/MM3 (134-434) 07/12/18 12:00 MPV 10.4 fl (7.5-11.1) 07/12/18 12:00 CMP Sodium 140 mmol/L (136-145) 07/12/18 12:00 Potassium 4.0 mmol/L (3.5-5.1) 07/12/18 12:00 Chloride 107 mmol/L (98-107) 07/12/18 12:00 Carbon Dioxide 27 mmol/L (21-32) 07/12/18 12:00 Anion Gap 6 MMOL/L (8-16) L 07/12/18 12:00 BUN 5 mg/dL (7-18) L 07/12/18 12:00 Creatinine 0.6 mg/dL (0.55-1.3) 07/12/18 12:00 Creat Clearance w eGFR 127.45 (>60) 07/12/18 12:00 Random Glucose 96 mg/dL (74-106) 07/12/18 12:00 Calcium 8.7 mg/dL (8.5-10.1) 07/12/18 12:00 Total Bilirubin 0.3 mg/dL (0.2-1) 07/12/18 12:00 AST 21 U/L (15-37) 07/12/18 12:00 ALT 34 U/L (13-61) 07/12/18 12:00 Alkaline Phosphatase 87 U/L (45-117) 07/12/18 12:00 Total Protein 7.0 g/dl (6.4-8.2) 07/12/18 12:00 Albumin 3.4 g/dl (3.4-5.0) 07/12/18 12:00 Current Medications Generic Name Dose Route Start Last Admin Trade Name Freq PRN Reason Stop Dose Admin Acetaminophen 1,000 mg 07/11/18 13:15 07/11/18 23:06 Ofirmev Injection - IVPB 1,000 mg Q6H PRN Administration pain 1-3 Enoxaparin Sodium 40 mg 07/11/18 10:00 Lovenox - SQ DAILY KENNEDY Morphine Sulfate 1 mg 07/11/18 13:15 Morphine Sulfate IVPUSH Q4H PRN PAIN LEVEL 6-10 Ondansetron HCl 4 mg 07/10/18 17:09 07/11/18 04:21 Zofran Injection IVPUSH 4 mg Q6H PRN Administration NAUSEA Home Medications Medication Instructions Recorded NK [No Known Home Medication] 07/10/18 US/ABDOMEN US -LIMITED HISTORY PROVIDED: Right upper quadrant pain. Real time examination of the abdomen demonstrates the following: The gallbladder is largely contracted. It appears to contain small calculi although a follow-up study following adequate patient preparation is now recommended. There is no evidence of intra or extrahepatic biliary duct dilatation. The liver is normal in size and texture with no intrahepatic masses seen. Hepatopedal flow is documented within the main portal vein. The pancreas is normal in size and texture with no pancreatic masses identified. There is no evidence of hydronephrosis or acute abnormalities of the right kidney. There is no evidence of AAA. The IVC is patent. IMPRESSION: Contracted gallbladder with suspected cholelithiasis. Clinical correlation and follow-up recommended. Please see above discussion. Reported By: Sky Hobbs MD 07/10/18 5253 US of abdomen : The gallbladder is largely contracted. It appears to contain small calculi although a follow-up study following adequate patient preparation is now recommended. There is no evidence of intra or extrahepatic biliary duct dilatation. The liver is normal in size and texture with no intrahepatic masses seen. Hepatopedal flow is documented within the main portal vein. The pancreas is normal in size and texture with no pancreatic masses identified. There is no evidence of hydronephrosis or acute abnormalities of the right kidney. There is no evidence of AAA. The IVC is patent. IMPRESSION: Contracted gallbladder with suspected cholelithiasis. CT of abdomen: Small gallstones with suggestion of acute cholecystitis for which further evaluation with gallbladder ultrasound is recommended. Tiny calcific density in the region of the right ureterovesical junction that may represent a nonobstructing stone measuring 2.5 mm and without gross evidence of right renal hydroureteronephrosis. Follow-up CT scan or a CT urogram is needed for further evaluation. Right ovarian cyst measuring 3.1 cm for which correlation with pelvis ultrasound is needed. There is a trace of free fluid in the cul-de-sac, likely physiologic Reported By: Naty Gibbs MD 07/10/18 1241 ASSESSMENT AND PLAN: Patient is a 22yo F with no PMHx presents to the ED with sudden onset R sided flank pain radiating to the RLQ and was found to have acute cholecystitis. # Acute cholecystitis with contracted gallbladder ,due to gallstones , comfrotable today , iv antibiotic was discontinued as per ID ; sx Dr. Raven clement is consulted and discussed with . as per Dr. bruno if patient tolerates diet can go home and follow up with surgery within a week. . # Right Ovarian cyst :follow up as an outpatient. # Right ureterovesical junction stone 2.5mm , non-obstructing with no evidence of hydronephrosis. no cva tenderness. discharge patient home.
--- NOTE | 2018-07-12 15:58 | DS ---
Physical Exam: SUBJECTIVE: Patient seen and examined at bedside- no acute events overnight patient states she had some ab pain after eating dinner last night but its much imrpoved this AM rates it arounda 10- denies any CP/SOB/N/V fevers or chills OBJECTIVE: Vital Signs Period Temp Pulse Resp BP Sys/Virgen Pulse Ox Last 24 Hr 97.3 F-98.6 F 49-69 16-20 82-113/46-59 97 PHYSICAL EXAM GENERAL: The patient is awake, alert, and fully oriented, in no acute distress. EYES: PEERLA: EOMI no scleral icterus NECK: no JVD; no lymphadenopathy. LUNGS:CTA B/L; no rales, rhonchi or wheezing. HEART: Regular rate and rhythm, S1, S2 without murmur, rub or gallop. ABDOMEN: Soft, nontender, nondistended, normoactive bowel sounds, no guarding, no rebound, no hepatosplenomegaly, no masses. EXTREMITIES: 2+ pulses, warm, well-perfused, no edema. PSYCH: Normal mood, normal affect. SKIN: Warm, dry, normal turgor, no rashes or lesions noted. LABS Laboratory Results - last 24 hr 07/12/18 07/12/18 12:00 12:00 WBC 7.0 RBC 3.54 L Hgb 11.0 Hct 31.3 L MCV 88.4 MCH 31.1 MCHC 35.2 RDW 13.2 Plt Count 253 MPV 10.4 Sodium 140 Potassium 4.0 Chloride 107 Carbon Dioxide 27 Anion Gap 6 L BUN 5 L Creatinine 0.6 Creat Clearance w eGFR 127.45 Random Glucose 96 Calcium 8.7 Total Bilirubin 0.3 AST 21 ALT 34 Alkaline Phosphatase 87 Total Protein 7.0 Albumin 3.4 imaging: US/ABDOMEN US -LIMITED HISTORY PROVIDED: Right upper quadrant pain. Real time examination of the abdomen demonstrates the following: The gallbladder is largely contracted. It appears to contain small calculi although a follow-up study following adequate patient preparation is now recommended. There is no evidence of intra or extrahepatic biliary duct dilatation. The liver is normal in size and texture with no intrahepatic masses seen. Hepatopedal flow is documented within the main portal vein. The pancreas is normal in size and texture with no pancreatic masses identified. There is no evidence of hydronephrosis or acute abnormalities of the right kidney. There is no evidence of AAA. The IVC is patent. IMPRESSION: Contracted gallbladder with suspected cholelithiasis. Clinical correlation and follow-up recommended. Please see above discussion. Reported By: Sky Hobbs MD 07/10/18 3313 US of abdomen : The gallbladder is largely contracted. It appears to contain small calculi although a follow-up study following adequate patient preparation is now recommended. There is no evidence of intra or extrahepatic biliary duct dilatation. The liver is normal in size and texture with no intrahepatic masses seen. Hepatopedal flow is documented within the main portal vein. The pancreas is normal in size and texture with no pancreatic masses identified. There is no evidence of hydronephrosis or acute abnormalities of the right kidney. There is no evidence of AAA. The IVC is patent. IMPRESSION: Contracted gallbladder with suspected cholelithiasis. Clinical correlation and follow-up recommended. Please see above discussion. CT of abdomen: Small gallstones with suggestion of acute cholecystitis for which further evaluation with gallbladder ultrasound is recommended. Tiny calcific density in the region of the right ureterovesical junction that may represent a nonobstructing stone measuring 2.5 mm and without gross evidence of right renal hydroureteronephrosis. Follow-up CT scan or a CT urogram is needed for further evaluation. Right ovarian cyst measuring 3.1 cm for which correlation with pelvis ultrasound is needed. There is a trace of free fluid in the cul-de-sac, likely physiologic Reported By: Naty Gibbs MD 07/10/18 1241 HOSPITAL COURSE: Date of Admission:07/10/18 22 y.o female with no PMH presented to the ED with a one day history of worsening abdominal/flank pain. patient admits to eating fatty food and was also having right flank pain and fever so she came to the ED. patient had an elvated WBC on arrival as well- imaging was done with results noted above. she was started on anitbiotics. she was seen by a surgeon who did not feel that surgery was warranted at this time given that most of her symptoms has resolved and her LFTS were normalized. he felt that if anything a possible HIDA scan should be done however her pain had resolved. she was taken off antibiotics and started on a regular diet which she had tolerated. her WBC and LFTs had normalized and she was d/c home with strcit f/u instructions to see the surgeon within one week as she might need an elective cholecystectomy as an outpatient. she was also advised to start a low carb/low fat diet as fatty foods can enhance more gallstone formation and perpetuate the infection. in rgards to the cyst found on her ovary=- she was instructed to f/u with her aws software development engineer within one week and she was also given a referral for a urologsit albino though the stone was very small and passable Date of Discharge: 07/12/18 Minutes to complete discharge: 39 Discharge Summary Reason For Visit: ABDOMINAL PAIN Condition: Stable - Instructions Diet, Activity, Other Instructions: You came to the emergency room with complaints of worsening abdominal pain. We did a CT scan of your abdomen/pelvis which showed gallstones and evidence of infection of the gallbladder. You were evaluated by a surgeon who did not feel any surgical intervention to your gallbladder was necessary at this time. The CT scan also showed a tiny blaader stone and a small cyst on your right ovary. Please follow up with your primary care physician within one week Please follow up with the surgeon, Dr. Robin, within one week Please avoid fatty foods and follow a low carb/low fat diet and hydrate yourself *if you begin to experience worsening abdominal/flank pain, chest pains, shortness of breath, vomiting, please return to the emergency room immediately Referrals: Omer Robin MD [Staff Physician] - 1 Week Disposition: HOME - Home Medications Comprehensive Discharge Medication List: Ambulatory Orders NK [No Known Home Medication] 07/10/18 Problem List - Problems (1) Acute cholecystitis Code(s): K81.0 - ACUTE CHOLECYSTITIS (2) Kidney stone Code(s): N20.0 - CALCULUS OF KIDNEY (3) Ovarian cyst Code(s): N83.209 - UNSPECIFIED OVARIAN CYST, UNSPECIFIED SIDE This patient is new to me today: Yes Date on this admission: 07/12/18 Emergency Visit: Yes ED Registration Date: 07/10/18 Care time: The patient presented to the Emergency Department on the above date and was hospitalized for further evaluation of their emergent condition. Critical Care patient: No - Discharge Referral Referred to [facility] No
== END 2018-07-12 17:44 | disposition home or self-care (01) | DRG 446 ==
LOC: JER 08:28 → JERBED 14:44 → OBSVTOIN 17:05 → J7W 21:23
PROVIDERS: ADMIT Internal Medicine; ATTEND Internal Medicine
DX: K80.00 Calculus of gallbladder with acute cholecystitis without obstruction (principal); N20.0 Calculus of kidney; N83.209 Unspecified ovarian cyst, unspecified side; R31.9 Hematuria, unspecified
CPT/HCPCS: 36415; 74176-TC; 76705-TC; 76856-TC; 80053; 81003; 81015; 83690; 83735; 84100; 84703; 85025; 85027; 85610; 85730; 86850; 86900; 86901; 87086; 99283-25; G0378; J0131

== ENCOUNTER 2018-10-14 08:09 | Day surgery (SDC) | payer BC ==
--- NOTE | 2018-09-29 13:14 | HP ---
DATE OF ADMISSION: 10/14/2018 DATE OF DICTATION: 09/15/2018 REASON FOR ADMISSION: Symptomatic cholelithiasis. BRIEF HISTORY: This is a 23-year-old female who was initially admitted to [facility] in June of 2018. At that time, the patient was diagnosed with having kidney stones and pain in the right side related to renal issues. She underwent a sonogram showing cholelithiasis with a contracted gallbladder, and given her clinical presentation, cholecystitis could not be entirely ruled out. In any event, the patient was subsequently discharged and managed for her kidney stones, and I saw the patient back at the end of June. By then, the patient had benign findings on her abdominal examination and then no real complaints. It was my feeling that it was difficult to discern whether her problems were kidney stone related or gallbladder related; and therefore, the patient was to follow up with me 2 months after that initial evaluation by me in June. During that follow up visit 2 months later in August, the patient clearly still has discomfort in the right upper quadrant with meals, even eating a salad. She has lost 10 pounds since I had seen her at the end of June because she feels she cannot eat without having any discomfort. The discomfort would last anywhere from 20 minutes to an hour or so and then subsequently resolve. She denies a change in stool color and urine color. No fever, chills, or sweats. Given the fact that she still has these biliary-type symptoms, I think her problem could be related to the gallbladder; and therefore, I have recommended a cholecystectomy. PAST MEDICAL HISTORY: Significant for asthma and kidney issues. She has no coronary artery disease, hypertension, or diabetes. PAST SURGICAL HISTORY: None. MEDICATIONS: Tramadol on a p.r.n. basis for pain. ALLERGIES: MOTRIN. SOCIAL HISTORY: She does not smoke nor drink. PHYSICAL EXAMINATION: HEENT: There is no icterus. Abdomen: Soft, nontender, and nondistended. No CVA tenderness on either side. IMPRESSION/PLAN: Cholelithiasis. This is a 23-year-old female who clearly has documented cholelithiasis based on the sonogram. Given her history, I suspect the patient has mild biliary colic; and, therefore, I would recommend proceeding with a laparoscopic cholecystectomy. The patient understands very clearly as well as the mother that taking out her gallbladder still may leave her with episodes of pain in the right upper quadrant after meals. They understand this and still wish to proceed with a cholecystectomy. Dago CURRAN [id number] cc: Dr. Wagner
[2018-10-13 10:57] VITALS: BMI 32.0
[2018-10-14] MEDS ORDERED: ERTAPENEM SODIUM 1 GM VIAL ONE (09:01)
[2018-10-14] MEDS ORDERED: MIDAZOLAM HCL 2 MG/2 ML SINGLE DOSE VIAL ONE ×2 (09:34)
[2018-10-14] MEDS ORDERED: PROPOFOL 20 ML ONE ×2 (09:42)
[2018-10-14] MEDS ORDERED: ROCURONIUM BROMIDE 50 MG/5 ML SYRINGE ONE (09:43)
[2018-10-14] MEDS ORDERED: ERTAPENEM SODIUM 1 GM VIAL IVPB ONE (09:45)
[2018-10-14] MEDS ORDERED: NEOSTIGMINE METHYLSULFATE 0.5 MG/ML - 10 ML MDV ONE (10:17)
[2018-10-14] MEDS ORDERED: ONDANSETRON 4 MG/2 ML VIAL IVPUSH PRN ×2 (10:48→11:16)
[2018-10-14] MEDS ORDERED: LACTATED RINGERS SOLUTION 1,000 ML IV SCH (11:00)
[2018-10-14] MEDS ORDERED: oxyCODONE HCL 5 MG TABLET PO PRN (11:16)
[2018-10-14] MEDS ORDERED: ACETAMINOPHEN 325 MG TABLET (FP) PO PRN (11:16)
[2018-10-14] MEDS ORDERED: IBUPROFEN 800 MG/8 ML IJ IVPB PRN (11:19)
[2018-10-14] MEDS: D5-1/2NS+20 MEQ KCL - 20 MEQ/1,000 ML INFUS.BAG IV SCH (12:30)
[2018-10-14] MEDS: MORPHINE SULFATE 8 MG/ML VIAL IVPB PRN ×2 (14:54→23:23)
[2018-10-15] MEDS: D5-1/2NS+20 MEQ KCL - 20 MEQ/1,000 ML INFUS.BAG IV SCH (01:11)
--- NOTE | 2018-10-15 06:07 | OP ---
DATE OF OPERATION: 10/14/2018 PREOPERATIVE DIAGNOSIS: Symptomatic cholelithiasis, history of cholecystitis. POSTOPERATIVE DIAGNOSIS: Symptomatic cholelithiasis, history of cholecystitis. PROCEDURE: Laparoscopic cholecystectomy and peritoneal lavage. SURGEON: Enrico Carbajal MD EDUCATION COURSES SALES REPRESENTATIVE: Abram Elena MD ANESTHESIA: Tatum Cuellar MD (general) ESTIMATED BLOOD LOSS: Minimal. SPECIMEN: Gallbladder. DESCRIPTION OF PROCEDURE: This is a 23-year-old female who has a history of cholecystitis. She now is symptomatic from her biliary disease that has been documented on sonogram with cholelithiasis. She is now here for a cholecystectomy. Patient was identified and appropriately positioned on the operating room table. After placement of general anesthesia, the abdomen was prepped and draped in the usual sterile fashion with ChloraPrep. An infraumbilical incision was made deep into the subcutaneous tissues. The remaining 3 ports placed under direct vision, all 5 mm, one in the epigastrium and two in the right upper quadrant. The gallbladder identified in the right upper quadrant. Ir was reflected over the dome of the liver in standard fashion. Going from lateral to medial, the neck and infundibulum of the gallbladder identified followed by the cystic duct. The cystic duct circumferentially isolated, clipped and then divided. The cystic artery identified more medially and posteriorly. It was subsequently isolated, clipped , and then divided in a similar fashion. The gallbladder itself was then removed from the liver bed with electrocautery. Prior to complete removal, the liver bed was irrigated, the operative field noted to be hemostatic. The ports were removed. Port sites were hemostatic. The specimens were brought out through the umbilical port site. The fascia at the umbilicus was reapproximated with interrupted 0 Vicryl. All skin closed with 4-0 subcuticular Biosyn followed by Dermabond. At the conclusion of this case, sponge and instrument counts were correct. ATTESTATION: Brief operative note handwritten on preprinted form. [facility] queried prior to giving any narcotics. Dago CURRAN [id number] cc: Dago Hoffman
[2018-10-15] MEDS ORDERED: PANTOPRAZOLE SODIUM 40 MG VIAL IVPUSH SCH (10:00)
[2018-10-15] MEDS ORDERED: ENOXAPARIN NA (PORCINE) 40 MG/0.4 ML DISP.SYRIN SQ SCH (10:00)
--- NOTE | 2018-10-15 12:11 | PN ---
Progress Note (short form) - Note Progress Note: esthesia post op note POD#1 S/p cholecystectomy, under general anesthesia. Pat seen and examined. No apparent post anesthesia complications.
[2018-10-15 13:25] VITALS: BP 121/66; PULSE 60; TEMP 98.4
--- NOTE | 2018-10-16 16:48 | PATH ---
Surgical Pathology Report Patient Name: AV BELTRAN [facility]. Rec. #: [id number] /Age/Gender: 1995 (Age: 23) / F Account: [id number] Location: AMBULATORY SURG Taken: 10/14/2018 Received: 10/14/2018 Reported: 10/16/2018 Physicians: Enrico Carbajal Specimen(s) Received GALLBLADDER Clinical History Cholelithiasis Final Diagnosis GALLBLADDER, LAPAROSCOPIC CHOLECYSTECTOMY: CHRONIC CHOLECYSTITIS WITH CHOLESTEROLOSIS. Electronically Signed Vero Peterson M.D. Gross Description Received in formalin, labeled "gallbladder," is a 6.5 x 2.2 x 2.2 cm. gallbladder with a 0.2 cm. in length portion of cystic duct attached. The outer surface is green and varies from smooth to shaggy. The lumen contains green, tenacious bile. There are no choleliths identified within the lumen or within the container. The mucosa is green and velvety with gold cholesterol stippling. The wall of the gallbladder averages 0.1 cm. in thickness. Supplier Quality Engineer sections are submitted in one cassette. /10/15/2018 [facility]10/15/2018
== END 2018-10-15 14:00 | disposition home or self-care (01) ==
LOC: JASUSAT 08:09 → J8W 14:27 → JASUSAT 10-15 14:00
PROVIDERS: ATTEND Surgery
PROC: 0FT44ZZ Resection of Gallbladder, Percutaneous Endoscopic Approach (ICD-10-PCS; principal; 2018-10-14 10:00)
DX: K80.10 Calculus of gallbladder with chronic cholecystitis without obstruction (principal)
CPT/HCPCS: 84703; 88304-TC; 94010; 94760